=== PATIENT | female | born 1975 | race Caucasian/White ===

== ENCOUNTER → 2016-05-23 | Outpatient (CLI) | payer BC | LOC: BMCIMAGING 11:44 | PROVIDERS: ATTEND Internal Medicine | DX: R53.83 Other fatigue (principal); J32.9 Chronic sinusitis, unspecified ==

== ENCOUNTER → 2017-04-03 | Outpatient (CLI) | payer BC ==
[~2017-04-03] MED LIST: GADOBUTROL 10 ML VIAL IVP ONE
== END ==
LOC: FIMAGING 09:56
PROVIDERS: ATTEND Internal Medicine Hematology & Oncology
DX: R51 Headache (principal); H93.12 Tinnitus, left ear
CPT/HCPCS: A9585

== ENCOUNTER → 2017-07-24 | Outpatient (CLI) | payer BC | LOC: FIMAGING 11:54 | PROVIDERS: ATTEND Physician Assistant | DX: M79.9 Soft tissue disorder, unspecified (principal); Z85.831 Personal history of malignant neoplasm of soft tissue | CPT/HCPCS: A9585 ==